=== PATIENT | male | born 1975 | race Caucasian/White ===

== ENCOUNTER 2017-04-23 09:06 | Emergency (ER) | payer SELFPAY ==
[2017-04-23 09:10] VITALS: BP 116/73; BMI 25.0
--- NOTE | 2017-04-23 09:54 | DR.GENAD ---
HPI - PCP Primary Care Physician: KENNY - HPI Comment HPI Comment: DOUGLAS MONZON. - Complaint/Symptoms Chief Complaint Doctors Comments: LACERATION BELOW RIGHT NOSE SUSTAIN FROM TREE LIMB BEFORE COMING. Chief Complaint:: PATIENT WAS CUTTING A TREE AND THE LIMB HIT HIM IN THE NOSE. PATIENT HAS A LACERATION ON THE UNDERSIDE OF HIS NARES. - Nurses notes reviewed Nurses Notes Review: Yes - Source History Provided: Patient - Mode of Arrival Mode of Arrival: Ambulatory - Timing Onset of Chief Complaint: 04/23/17 - Duration Duration: Constant Duration: Hours - Severity Severity: Moderate PMH - PMH Past Medical History: Yes Past Medical History: Seizures Past Surgical History: No Surgical History: Unknown - Family History History of Family Medical Conditions: Yes Family Medical History: Diabetes Mellitus, [place], Hypertension - Social History Does patient currently use any type of tobacco product: Yes Have you used tobacco products in the last 12 months: Yes Type of Tobacco Use: Cigarettes Does any household member use tobacco: No Alcohol Use: None Do you use any recreational Drugs:: No Lives With: Family Lives Where: Home - infectious screening In the last 2 months have you had wt loss of >10#?: NO Have you had fever, night sweats or hemotysis?: No Have you traveled outside the country in the last 6 months?: No Isolation: Standard ROS - Review of Systems Constitutional: No Symptoms Reported Eyes: No Symptoms Reported ENTM: No Symptoms Reported Respiratoy: No Symptoms Reported Cardiovascular: No Symptoms Reported Gastrointestinal/Abdominal: No Symptoms Reported Genitourinary: No Symptoms Reported Neurological: No Symptoms Reported Musculoskeletal: No Symptoms Reported Integumentary: Other (1CM LAC BELOW RIGHT NOSE.) Hematologic/Lymphatic: No Symptoms Reported Endocrine: No Symptoms Reported All Other Systems: Reviewed and Negative PE - Vital Signs Vitals: Temperature 98.4 F Pulse Rate 85 Respiratory Rate 20 Blood Pressure [Right Arm] 106/55 Blood Pressure 116/73 O2 Sat by Pulse Oximetry 98 - General Limitations: No Limitations General Appearance: Alert - Head Head Exam: Normal Inspection - Eyes Eye exam: Normal Appearance - ENT ENT Exam: Normal External Ear Exam External Ear Exam: Normal External Inspection TM/Canal Exam: Bilateral Normal Nose Exam: Normal Nose Exam Mouth Exam: Normal Inspection Throat Exam: Normal Inspection - Neck Neck Exam: Trachea Midline - Chest Chest Inspection: Symmetric Chest Wall Rise - Respiratory Respiratory Exam: Normal Lung Sounds Bilat Respiratory Exam: Bilateral Clear to Auscultation - Cardiovascular Cardiovascular Exam: Regular Rate, Normal Rhythm, Normal Heart Sounds - Abdominal Exam Abdominal Exam: Normal Bowel Sounds, Soft. negative: Tenderness - Extremities Extremities Exam: Normal Inspection - Back Back Exam: Normal Inspection - Neurologic Neurological Exam: Alert, Oriented X3 - Psychiatric Psychiatric Exam: Normal Affect, Normal Mood - Skin Skin Exam: Normal Color MDM - Differential Diagnosis Differential Diagnosis: LACERATION, 1CM BELOW RIGHT RIGHT NOSE. Course - Treatment Treatment: SEE ORDERS. - Education/Counseling Education/Counseling: Patient, Education Educated On: Diagnosis, Needs for Follow Up Procedures - Procedure Comments Procedures: DERMABOND APPLIED TO LACERATION WITH STERI-SRIP OVER IT. - Diagnosis Discharge Problem: Laceration - Discharge Plan Disposition: 01 HOME, SELF-CARE Condition: Stable - Follow ups/Referrals Follow ups/Referrals: DELILAH COX [Primary Care Provider] - 3 days - Instructions Instructions: Laceration Care, Adult, [id number], Tissue Adhesive Wound Care , [id number] Additional Instructions: RETURN TO ED IF WORSE.
== END 2017-04-23 10:12 | disposition home or self-care (01) ==
LOC: ER 09:21
PROC: 09QK0ZZ Repair Nasal Mucosa and Soft Tissue, Open Approach (ICD-10-PCS; principal; 2017-04-23)
DX: S01.21XA Laceration without foreign body of nose, initial encounter (principal); X58.XXXA Exposure to other specified factors, initial encounter; Y92.9 Unspecified place or not applicable
CPT/HCPCS: 12011; 99282